=== PATIENT | male | born 1995 | race Caucasian/White ===

== ENCOUNTER 2016-09-29 18:30 | Emergency (ER) | payer BC ==
[~2016-09-29] VITALS: Ht 188 cm; Wt 81.7 kg
[2016-09-29 18:39] VITALS: BP 107/86
[2016-09-29] MEDS ORDERED: TRAMADOL HCL50 MG PO (20:14)
== END 2016-09-29 20:45 | disposition home or self-care (01) ==
LOC: EME 18:30
PROC: 0RSWXZZ Reposition Right Finger Phalangeal Joint, External Approach (ICD-10-PCS; principal; 2016-09-29)
DX: S63.284A Dislocation of proximal interphalangeal joint of right ring finger, initial encounter (principal); X50.0XXA Overexertion from strenuous movement or load, initial encounter; Y93.11 Activity, swimming; Y92.828 Other wilderness area as the place of occurrence of the external cause; F17.200 Nicotine dependence, unspecified, uncomplicated
CPT/HCPCS: 73140; 99281; 99284